=== PATIENT | male | born 1940 | race Caucasian/White ===

== ENCOUNTER 2023-06-08 10:35 | Outpatient (RCR) | payer MEDICARE, SELFPAY | END 2023-06-08 23:59 | disposition home or self-care (01) | LOC: RST 10:35 | PROVIDERS: ATTENDING PHYSICIAN Nurse Practitioner Adult Health; PRIMARYCARE PHYSICIAN Internal Medicine | DX: I69.328 Other speech and language deficits following cerebral infarction (principal) | CPT/HCPCS: 92507; 92523 ==

== ENCOUNTER 2023-07-22 09:20 | Outpatient (RCR) | payer MEDICARE, SELFPAY | END 2023-07-22 23:59 | disposition home or self-care (01) | LOC: RST 09:20 | PROVIDERS: ATTENDING PHYSICIAN Nurse Practitioner Adult Health; PRIMARYCARE PHYSICIAN Internal Medicine | DX: I69.328 Other speech and language deficits following cerebral infarction (principal); I69.322 Dysarthria following cerebral infarction; Z73.6 Limitation of activities due to disability | CPT/HCPCS: 92507 ==

== ENCOUNTER 2023-08-07 09:32 | Outpatient (RCR) | payer MEDICARE, SELFPAY | END 2023-08-07 09:53 | disposition home or self-care (01) | LOC: RST 09:32 | PROVIDERS: ATTENDING PHYSICIAN Nurse Practitioner Adult Health; PRIMARYCARE PHYSICIAN Internal Medicine | DX: I69.328 Other speech and language deficits following cerebral infarction (principal); I69.322 Dysarthria following cerebral infarction; Z73.6 Limitation of activities due to disability | CPT/HCPCS: 92507 ==

== ENCOUNTER 2023-08-13 16:23 | Emergency (ER) | payer MEDICARE, SELFPAY ==
[2023-08-13] VITALS (10 sets, daily range): BP systolic 139–247; BP diastolic 64–125
[2023-08-13 16:54] LABS: % Basophils 0.8 % (0-2); % Immature Granulocytes 0.5 % (0-0.5); % Lymphocytes 24.4 % (20.5-51.1); % Monocytes 6.8 % (1.7-9.3); % Neutrophils 63.5 % (42.2-75.2); Absolute Basophils 0.1 10^3/uL (0-0.2); Absolute Eosinophils 0.4 10^3/uL (0-0.7); Absolute Immature Granulocytes 0.1 10^3/uL (0-0.05); Absolute Lymphocytes 2.6 10^3/uL (1.2-3.4); Absolute Monocytes 0.7 10^3/uL (0.1-0.6); Absolute Neutrophils 6.9 10^3/uL (1.4-6.5); Hematocrit 43.6 % (39.0-52.0); Mean Corp Hgb Conc. 34.4 g/dL (33.0-37.0); Mean Corpuscular Hgb 29.7 pg (27.0-31.0); Mean Corpuscular Volume 86.3 fL (80.0-94.0); Nucleated Red Blood Cells % 0 % (-); Platelet Count 198 10^3/uL (130-400); Red Blood Cell Count 5.05 10^6/uL (4.70-6.10); Red Cell Dist. Width 14.4 % (11.5-14.5); White Blood Cell Count 10.8 10^3/uL (4.8-10.8)
[2023-08-13 17:07] LABS: ALT (SGPT) 17 U/L (0-50); AST (SGOT) 29 U/L (17-59); Albumin 3.9 g/dl (3.5-5.0); Alkaline Phosphatase 41 U/L (38-126); Blood Urea Nitrogen 29 mg/dl (9-20); Calcium 9.4 mg/dl (8.4-10.2); Carbon Dioxide 29 mmol/L (22-30); Chloride 99 mmol/L (98-107); Glucose 108 mg/dl (70-99); Potassium 4.3 mmol/L (3.5-5.1); Sodium 135 mmol/L (135-145); Total Bilirubin 0.8 mg/dl (0.2-1.3); Total Protein 6.6 g/dl (6.3-8.2); eGFR > 60.00
--- NOTE | 2023-08-13 18:40 | ED.GENMED ---
History of Present Illness
<Denisha Phoenix PA-C - Last Filed: 08/13/23 23:17>
General
Chief Complaint: Blood Pressure Problem
Source: patient
Exam Limitations: none
Time Seen by Provider: 08/13/23 18:12
Nursing documentation reviewed up to this point in time: agreed with
Travel History
Have you had any contact with someone who has COVID-19?: No
Do you have any symptoms of coronavirus? Fever > 100 degrees, chills, cough, shortness of breath, sore throat, loss of taste or smell, muscle aches, or headache?: No
History of Present Illness
History of Present Illness:
Patient is an 83-year-old male with history hypertension, hyperlipidemia, carotid artery stenosis status post left enterectomy, CVA presenting for evaluation of asymptomatic hypertension. Patient states that he took his blood pressure at home
around 4 PM and found it to be 200/120. He called his primary care provider who recommended he go to the emergency room for evaluation. He denies any chest pain, shortness of breath, headache, visual changes, weakness, back pain.
Patient has a history of hypertension and currently takes metoprolol 25 mg valsartan/HCTZ 320 mg. He was having heart palpitations recently and was switched from carvedilol to metoprolol by his PCP earlier this week. He took his first dose of
metoprolol this morning. There was a 3 day period earlier this week where he had stopped carvedilol and had not yet started metoprolol.
He checks his blood pressure somewhat infrequently but typically finds them to be around 160/85.
Past History
<Denisha Phoenix PA-C - Last Filed: 08/13/23 23:17>
Past History
ED Past Medical History: Cancer (melanoma and Squamous cell), HTN and Other (Vertigo, )
ED Past Surgical History: Appendectomy, Orthopedic (Lumbar laminectomy), Urological (TURP, ) and Other (Cataracts, Left carotid endarterectomy)
Social History
Tobacco: Smoker
Alcohol: None
Personal:
Living: alone
Phy Exam
<Denisha Phoenix PA-C - Last Filed: 08/13/23 23:17>
Physical Exam
Physical Exam:
General: In no apparent distress, non-toxic
Vitals: Hypertensive, otherwise VSS
HEENT: Atraumatic, normocephalic; pupils equal round reactive to light bilaterally, extraocular muscles intact, protecting airway
Neck: appears supple, no JVD
CV: Borderline bradycardic, regular rhythm, no evidence of cyanosis
Resp: No evidence of respiratory distress, lungs clear; no accessory muscle use
Abd: Soft, nontender, non-distended
Extremities: No deformities, no evidence of cyanosis or edema; DP pulses equal and palpable bilaterally
Neuro: alert and oriented to person place time, speech normal, no focal neurologic deficits, cranial nerves II through XII intact; sensation intact, strength 5 out of 5 in upper and lower extremities; very subtle flattening of left nasolabial fold
which is baseline per patient
Psych: Normal affect
Skin: Intact, no rashes
Course
<Denisha Phoenix PA-C - Last Filed: 08/13/23 23:17>
Orders/Labs/Results
Orders:
Orders
08/13/23 16:33
Electrocardiogram (*1) Urgent
Reason for Study: Hypertension, Benign
EKG- Treatment ONCE
08/13/23 16:43
Complete Blood Count/With Diff Urgent
Comprehensive Metabolic Panel Urgent
08/13/23 18:40
CT Head W/o Iv Contrast Urgent
Comment:
Reason For Exam: hypertension
HydrALAZINE [Apresoline] 10 mg IV NOW STA
08/13/23 21:58
HydrALAZINE [Apresoline] 10 mg IV NOW STA
Abnormal Lab Results
08/13/23
16:43
Abs Immat Gran (auto) 0.1 H 10^3/uL
(0-0.05)
Absolute Neuts (auto) 6.9 H 10^3/uL
(1.4-6.5)
Absolute Monos (auto) 0.7 H 10^3/uL
(0.1-0.6)
BUN 29 H mg/dl
(9-20)
Glucose 108 H mg/dl
(70-99)
08/13/23 16:43
08/13/23 16:43
Vital Signs
Initial and Last Documented VS:
Initial Vital Signs
Temp Pulse Resp BP Pulse Ox
98.2 F 59 18 247/125 98
08/13/23 16:29 08/13/23 16:29 08/13/23 16:29 08/13/23 16:29 08/13/23 16:29
Last Documented Vital Signs
Temp Pulse Resp BP Pulse Ox
98.2 F 56 17 139/64 95
08/13/23 16:29 08/13/23 22:00 08/13/23 22:00 08/13/23 22:00 08/13/23 20:35
<Swathi Pereira MD - Last Filed: 08/13/23 22:03>
Orders/Labs/Results
Orders:
Orders
08/13/23 16:33
Electrocardiogram (*1) Urgent
Reason for Study: Hypertension, Benign
EKG- Treatment ONCE
08/13/23 16:43
Complete Blood Count/With Diff Urgent
Comprehensive Metabolic Panel Urgent
08/13/23 18:40
CT Head W/o Iv Contrast Urgent
Comment:
Reason For Exam: hypertension
HydrALAZINE [Apresoline] 10 mg IV NOW STA
08/13/23 21:58
HydrALAZINE [Apresoline] 10 mg IV NOW STA
Abnormal Lab Results
08/13/23
16:43
Abs Immat Gran (auto) 0.1 H 10^3/uL
(0-0.05)
Absolute Neuts (auto) 6.9 H 10^3/uL
(1.4-6.5)
Absolute Monos (auto) 0.7 H 10^3/uL
(0.1-0.6)
BUN 29 H mg/dl
(9-20)
Glucose 108 H mg/dl
(70-99)
08/13/23 16:43
08/13/23 16:43
Vital Signs
Initial and Last Documented VS:
Initial Vital Signs
Temp Pulse Resp BP Pulse Ox
98.2 F 59 18 247/125 98
08/13/23 16:29 08/13/23 16:29 08/13/23 16:29 08/13/23 16:29 08/13/23 16:29
Last Documented Vital Signs
Temp Pulse Resp BP Pulse Ox
98.2 F 56 17 139/64 95
08/13/23 16:29 08/13/23 22:00 08/13/23 22:00 08/13/23 22:00 08/13/23 20:35
<Denisha Phoenix PA-C - Last Filed: 08/13/23 23:17>
MDM/Problems Addressed
Differential Diagnosis Includes:
Asymptomatic hypertension, hypertensive urgency, hypertensive emergency
MDM/Problems Addressed:
Patient is an 83-year-old male with history hypertension, hyperlipidemia, carotid artery stenosis status post left enterectomy, CVA presenting for evaluation of asymptomatic hypertension. Patient states that he took his blood pressure at home
around 4 PM and found it to be 200/120. He was told by his primary care provider to visit emergency room. 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 Patient is completely asymptomatic
and denies any chest pain, shortness of breath, headache, visual changes, back pain, dizziness, weakness, numbness. He currently takes metoprolol 25 mg, which he started this morning and valsartan/HCTZ. Physical exam as document above. He is very
well-appearing, no neurologic deficits. Given degree of hypertension�will check basic labs EKG, CT of head. Will give 10 mg IV hydralazine and reassess.
CBC without any clinically significant abnormalities. CMP with elevation in BUN to 29 which appears to be around patient's baseline. No other clinically significant abnormalities.
EKG with sinus bradycardia and no signs of ischemia. CT scan pending
Update: 30 minutes following administration of hydralazine�patient's blood pressure has decreased to 194/76. Plan for discharge following CT of head.
BP has remained stable. Stable for discharge with very close return precautions and immediate f/u with cardiology and primary care for management of hypertension. Patient comfortable with this plan. All questions answered.
Chronic conditions affecting care:
HTN, HLD, prior CVA
Acute Exacerbation and/or Progression of Chronic Illness:
Hypertensive urgency
<Denisha Phoenix PA-C - Last Filed: 08/13/23 23:17>
*Radiology
Radiology exam reviewed: preliminary read by ED provider
*Pulse Oximetry
Patient hypoxic: no
*EKG
EKG Intrepretation Date: 08/13/23
Interpretation: abnormal
Comparison EKG: no changes
Heart Rate: 55
Rate: bradycardiac
Rhythm: sinus
[place]: normal axis
Interval: normal interval
QRS Pattern: normal QRS
Ischemia: no ischemia
*Library Attendant Interpretation
Rate: bradycardiac
Interpretation: normal
Heart Rate: 50
Rhythm: sinus
*Critical Care Note
Total Time (30-74mins, 75-104mins- exclusive of procedures): Not Applicable
ED Attending Note
<Denisha Phoenix PA-C - Last Filed: 08/13/23 23:17>
-
Portions of this chart may have been created with voice recognition software.� Occasional wrong word or��sound alike� substitutions may have occurred due to the inherent limitations of voice recognition software.
<Swathi Pereira MD - Last Filed: 08/13/23 22:03>
ED Attending Note
Patient seen and examined by attending physician: Yes
I performed the substantive portion of visit, reviewed & personally made and approve the management plan that is documented in note by myself or GILDA.: Yes
ED Attending Note:
83-year-old male presents emergency department with elevated blood pressure. He states it was checked last week and was near normal. He has had recent medication changes. He states that he was on 80 mg of carvedilol and that his director of business continuity
creased to 20 mg about a week ago. Then, this week, his primary care doctor discontinued his carvedilol. Start the new agent, metoprolol, until a few days later. He was having palpitations earlier in the week which is now fully resolved. He
denies any symptoms at this time. He denies chest pain, dizziness, dyspnea, numbness, tingling, headache, weakness, or other complaints. On exam, patient is neurologically intact, very pleasant, smiling. There is a very very subtle flattening of
the left nasolabial fold which patient states is baseline for him. Finger nose normal, motor 5 out of 5, sensory intact. Plan is workup to exclude endorgan injury, unremarkable thus far, CT pending. Will administer medication to gently partially
reduce blood pressure with plans for very close follow-up.
Head ct nad. bp initilaly responded to meds, slowly increasing most recently 210/97. Will remedicate to slowly reduce before close d/c. Correction, repeat bp markedly improved. med canceled, pt d/c home.
Discharge Plan
Departure
Patient Disposition: Home (Routine Discharge)
Date of Disposition: 08/13/23
Time of Disposition: 22:02
Patient with high blood pressure during this ER visit?: Yes
Condition: Good
Covid-19: Not Applicable
Discharge Problem:
Hypertensive urgency
Instructions: High Blood Pressure (DC), High blood pressure emergencies, BLOOD PRESSURE
Prescriptions:
No Action
levothyroxine [Synthroid] 150 mcg Tablet
150 mcg PO DAILY AT 0700
aspirin 81 mg Tablet,Chewable
81 mg PO DAILY
ezetimibe 10 mg Tablet
10 mg PO DAILY
carvedilol phosphate 10 mg Capsule, Er Multiphase 24 Hr
10 mg PO DAILY
Rx Instructions:
must administer with a meal/food
valsartan-hydrochlorothiazide 320-12.5 mg Tablet
1 tab PO DAILY
finasteride 5 mg Tablet
5 mg PO HS
nicotine 14 mg/24 hr Patch 24 Hour
14 mg transdermal DAILY Qty: 30 0RF
amlodipine 5 mg Tablet
5 mg PO DAILY Qty: 30 0RF
cholecalciferol (vitamin D3) 50 mcg (2,000 unit) Tablet
50 mcg PO DAILY Qty: 30 0RF
clopidogrel 75 mg Tablet
75 mg PO DAILY Qty: 30 0RF
Referrals:
Santy Eastman DO [Family Provider] - Tomorrow
Mykel Russo MD [Active] - Tomorrow
Activity Restrictions/Additional Instructions:
-Return to the emergency department with any chest pain, shortness of breath, severe back pain, dizziness, weakness, visual changes, severe headache, worsening in current symptoms, or any other concerns
-You should continue to take your medication as prescribed.
-As discussed - you should follow-up with cardiology and your primary care provider tomorrow for further evaluation/management of your hypertension.
Interventions
Interventions:
*Risk Screen - Suicide Last Done: 08/13/23 16:29
*General Assessment Last Done: 08/13/23 16:29
*Neglect/Abuse Screening Last Done: 08/13/23 16:29
ED- Fall Risk Assessment Last Done: 08/13/23 17:44
*ED COVID-19 Vaccine History Last Done: 08/13/23 16:29
*Nursing Disposition Last Done: 08/13/23 22:14
ED- Cardiac Assessment Last Done: 08/13/23 17:44
ED- Neurological Assessment Last Done: 08/13/23 17:44
ED- Pulmonary Assessment Last Done: 08/13/23 17:44
Discharge Date and Time
Discharge Date/Time: 08/13/23 22:15
[2023-08-13] MEDS: APRESOLINE 10 MG IV (19:02)
== END 2023-08-13 22:15 | disposition home or self-care (01) ==
LOC: EMR 16:23
PROVIDERS: EMERGENCY PHYSICIAN Emergency Medicine; FAMILY PHYSICIAN Internal Medicine
DX: I16.0 Hypertensive urgency (principal); E78.5 Hyperlipidemia, unspecified
CPT/HCPCS: 99285; 96374; 70450; 80053; 85025; 93005

== ENCOUNTER → 2023-11-13 09:03 | Outpatient (REF) | payer MEDICARE, SELFPAY | LOC: DHVS 09:03 | PROVIDERS: ATTENDING PHYSICIAN Surgery Vascular Surgery; FAMILY PHYSICIAN Internal Medicine | DX: I65.23 Occlusion and stenosis of bilateral carotid arteries (principal) | CPT/HCPCS: 93880 ==

== ENCOUNTER → 2024-01-12 06:50 | Outpatient (REF) | payer MEDICARE, SELFPAY ==
[2024-01-12 08:32] LABS: ALT (SGPT) 21 U/L (0-50); AST (SGOT) 29 U/L (17-59); Albumin 3.9 g/dl (3.5-5.0); Alkaline Phosphatase 46 U/L (38-126); Blood Urea Nitrogen 27 mg/dl (9-20); Calcium 9.3 mg/dl (8.4-10.2); Carbon Dioxide 32 mmol/L (22-30); Chloride 101 mmol/L (98-107); Glucose 108 mg/dl (70-99); HDL Cholesterol 55 mg/dl; LDL Cholesterol, Calculated 105 mg/dl; Potassium 4.6 mmol/L (3.5-5.1); Sodium 136 mmol/L (135-145); Total Bilirubin 0.4 mg/dl (0.2-1.3); Total Cholesterol 195 mg/dl (50-199); Total Protein 6.1 g/dl (6.3-8.2); Triglyceride 177 mg/dl (10-149); Very Low Density Lipoprotein 35 mg/dl (0-30); eGFR 59.63
== END ==
LOC: REG 06:50
PROVIDERS: ATTENDING PHYSICIAN Internal Medicine
DX: I10 Essential (primary) hypertension (principal); E78.2 Mixed hyperlipidemia
CPT/HCPCS: 36415; 80053; 80061

== ENCOUNTER → 2024-03-10 07:49 | Outpatient (REF) | payer MEDICARE, SELFPAY ==
[2024-03-10 10:19] LABS: % Eosinophils 4.2 % (0-6); % Immature Granulocytes 0.4 % (0-0.5); % Lymphocytes 20.1 % (20.5-51.1); % Monocytes 5.8 % (1.7-9.3); % Neutrophils 68.5 % (42.2-75.2); Absolute Basophils 0.1 10^3/uL (0-0.2); Absolute Eosinophils 0.4 10^3/uL (0-0.7); Absolute Lymphocytes 1.9 10^3/uL (1.2-3.4); Absolute Monocytes 0.6 10^3/uL (0.1-0.6); Absolute Neutrophils 6.5 10^3/uL (1.4-6.5); Hematocrit 42.8 % (39.0-52.0); Hemoglobin 14.4 g/dL (13.0-18.0); Mean Corp Hgb Conc. 33.6 g/dL (33.0-37.0); Mean Corpuscular Hgb 29.4 pg (27.0-31.0); Mean Corpuscular Volume 87.5 fL (80.0-94.0); Mean Platelet Volume 10.1 fL (7.4-10.4); Nucleated Red Blood Cells % 0 % (-); Platelet Count 203 10^3/uL (130-400); Red Blood Cell Count 4.89 10^6/uL (4.70-6.10); Red Cell Dist. Width 14.6 % (11.5-14.5); White Blood Cell Count 9.6 10^3/uL (4.8-10.8)
[2024-03-10 10:56] LABS: ALT (SGPT) 20 U/L (0-50); AST (SGOT) 29 U/L (17-59); Albumin 4.2 g/dl (3.5-5.0); Alkaline Phosphatase 48 U/L (38-126); Blood Urea Nitrogen 26 mg/dl (9-20); Calcium 9.4 mg/dl (8.4-10.2); Carbon Dioxide 29 mmol/L (22-30); Chloride 98 mmol/L (98-107); Glucose 98 mg/dl (70-99); HDL Cholesterol 69 mg/dl; LDL Cholesterol, Calculated 119 mg/dl; Potassium 4.5 mmol/L (3.5-5.1); Sodium 137 mmol/L (135-145); Total Bilirubin 0.6 mg/dl (0.2-1.3); Total Cholesterol 217 mg/dl (50-199); Total Protein 6.4 g/dl (6.3-8.2); Triglyceride 147 mg/dl (10-149); Very Low Density Lipoprotein 29 mg/dl (0-30); eGFR > 60.00
== END ==
LOC: REG 07:49
PROVIDERS: ATTENDING PHYSICIAN Internal Medicine
DX: I10 Essential (primary) hypertension (principal); R42 Dizziness and giddiness; E03.9 Hypothyroidism, unspecified; M35.3 Polymyalgia rheumatica; E78.00 Pure hypercholesterolemia, unspecified; D72.829 Elevated white blood cell count, unspecified
CPT/HCPCS: 36415; 80053; 80061; 84443; 85025

== ENCOUNTER → 2024-05-05 08:25 | Outpatient (REF) | payer MEDICARE, SELFPAY ==
[2024-05-05 11:59] LABS: Free T4 1.28 ng/dl (0.78-2.19)
== END ==
LOC: REG 08:25
PROVIDERS: ATTENDING PHYSICIAN Internal Medicine
DX: E03.9 Hypothyroidism, unspecified (principal)
CPT/HCPCS: 36415; 84439; 84443

== ENCOUNTER → 2024-07-06 14:42 | Outpatient (REF) | payer MEDICARE, SELFPAY | LOC: RAD 14:42 | PROVIDERS: ATTENDING PHYSICIAN Internal Medicine | DX: I73.9 Peripheral vascular disease, unspecified (principal); F17.210 Nicotine dependence, cigarettes, uncomplicated | CPT/HCPCS: 93922; 93925 ==

== ENCOUNTER → 2024-07-18 08:08 | Outpatient (REF) | payer MEDICARE, SELFPAY ==
[2024-07-18 09:52] LABS: ALT (SGPT) 17 U/L (0-50); AST (SGOT) 25 U/L (17-59); Albumin 4.2 g/dl (3.5-5.0); Alkaline Phosphatase 47 U/L (38-126); Blood Urea Nitrogen 26 mg/dl (9-20); Calcium 9.2 mg/dl (8.4-10.2); Carbon Dioxide 32 mmol/L (22-30); Chloride 101 mmol/L (98-107); Glucose 100 mg/dl (70-99); HDL Cholesterol 68 mg/dl; LDL Cholesterol, Calculated 123 mg/dl; Potassium 5.2 mmol/L (3.5-5.1); Sodium 139 mmol/L (135-145); Total Bilirubin 0.4 mg/dl (0.2-1.3); Total Cholesterol 213 mg/dl (50-199); Total Protein 6.5 g/dl (6.3-8.2); Triglyceride 113 mg/dl (10-149); Very Low Density Lipoprotein 22 mg/dl (0-30); eGFR 59.26
[2024-07-18 10:25] LABS: PSA, Total - Screen 2.18 ng/ml (0.0-4.0); TSH Reflex To Free T4 4.39 uIU/ml (0.47-4.68)
== END ==
LOC: REG 08:08
PROVIDERS: ATTENDING PHYSICIAN Internal Medicine
DX: I10 Essential (primary) hypertension (principal); E78.2 Mixed hyperlipidemia; E03.9 Hypothyroidism, unspecified; Z87.898 Personal history of other specified conditions
CPT/HCPCS: 36415; 80053; 80061; 84443; G0103

== ENCOUNTER → 2024-12-19 13:51 | Outpatient (REF) | payer MEDICARE, SELFPAY | LOC: RAD 13:51 | PROVIDERS: ATTENDING PHYSICIAN Surgery Vascular Surgery; FAMILY PHYSICIAN Internal Medicine | DX: I65.23 Occlusion and stenosis of bilateral carotid arteries (principal) | CPT/HCPCS: 93880 ==

== ENCOUNTER → 2025-02-09 13:54 | Outpatient (REF) | payer MEDICARE, SELFPAY | LOC: RAD 13:54 | PROVIDERS: ATTENDING PHYSICIAN Internal Medicine | DX: M54.50 Low back pain, unspecified (principal) | CPT/HCPCS: 72110 ==

== ENCOUNTER 2025-02-14 07:12 | Outpatient (RCR) | payer MEDICARE, SELFPAY | END 2025-02-14 23:59 | disposition home or self-care (01) | LOC: RPT 07:12 | PROVIDERS: ATTENDING PHYSICIAN Internal Medicine | DX: I73.9 Peripheral vascular disease, unspecified (principal); M35.3 Polymyalgia rheumatica; R42 Dizziness and giddiness; R26.89 Other abnormalities of gait and mobility; Z73.6 Limitation of activities due to disability | CPT/HCPCS: 97112; 97163 ==

== ENCOUNTER → 2025-02-28 07:10 | Outpatient (REF) | payer MEDICARE, SELFPAY ==
[2025-02-28 09:36] LABS: ALT (SGPT) 28 U/L (0-50); AST (SGOT) 31 U/L (17-59); Albumin 4.3 g/dl (3.5-5.0); Alkaline Phosphatase 66 U/L (38-126); Blood Urea Nitrogen 25 mg/dl (9-20); Calcium 9.0 mg/dl (8.4-10.2); Carbon Dioxide 29 mmol/L (22-30); Chloride 99 mmol/L (98-107); Glucose 109 mg/dl (70-99); HDL Cholesterol 70 mg/dl; LDL Cholesterol, Calculated 110 mg/dl; Potassium 4.4 mmol/L (3.5-5.1); Sodium 133 mmol/L (135-145); Total Protein 6.5 g/dl (6.3-8.2); Very Low Density Lipoprotein 25 mg/dl (0-30); eGFR 59.26
[2025-02-28 09:55] LABS: PSA, Total - Screen 2.29 ng/ml (0.0-4.0)
== END ==
LOC: REG 07:10
PROVIDERS: ATTENDING PHYSICIAN Internal Medicine Cardiovascular Disease; FAMILY PHYSICIAN Internal Medicine
DX: I10 Essential (primary) hypertension (principal); E78.2 Mixed hyperlipidemia; E03.9 Hypothyroidism, unspecified; Z87.898 Personal history of other specified conditions; Z12.5 Encounter for screening for malignant neoplasm of prostate
CPT/HCPCS: 36415; 80053; 80061; 84439; 84443; G0103

== ENCOUNTER 2025-03-20 17:06 | Outpatient (RCR) | payer MEDICARE, SELFPAY | END 2025-03-20 23:59 | disposition home or self-care (01) | LOC: RPT 17:06 | PROVIDERS: ATTENDING PHYSICIAN Internal Medicine | DX: I73.9 Peripheral vascular disease, unspecified (principal); M35.3 Polymyalgia rheumatica; R42 Dizziness and giddiness; R26.89 Other abnormalities of gait and mobility; Z73.6 Limitation of activities due to disability | CPT/HCPCS: 97110; 97112; 97530 ==

== ENCOUNTER → 2025-04-04 07:10 | Outpatient (REF) | payer MEDICARE, SELFPAY | LOC: REG 07:10 | PROVIDERS: ATTENDING PHYSICIAN Internal Medicine | DX: E03.9 Hypothyroidism, unspecified (principal) | CPT/HCPCS: 36415; 84443 ==

== ENCOUNTER → 2025-04-20 07:43 | Outpatient (REF) | payer MEDICARE, SELFPAY | LOC: RAD 07:43 | PROVIDERS: ATTENDING PHYSICIAN Internal Medicine | DX: S09.90XA Unspecified injury of head, initial encounter (principal); I67.9 Cerebrovascular disease, unspecified; J44.9 Chronic obstructive pulmonary disease, unspecified | CPT/HCPCS: 70450 ==

== ENCOUNTER 2025-04-21 09:25 | Outpatient (RCR) | payer MEDICARE, SELFPAY | END 2025-04-21 23:59 | disposition home or self-care (01) | LOC: RPT 09:25 | PROVIDERS: ATTENDING PHYSICIAN Internal Medicine | DX: I73.9 Peripheral vascular disease, unspecified (principal); M35.3 Polymyalgia rheumatica; R42 Dizziness and giddiness; R26.89 Other abnormalities of gait and mobility; Z73.6 Limitation of activities due to disability; R26.2 Difficulty in walking, not elsewhere classified | CPT/HCPCS: 97110; 97112; 97530 ==

== ENCOUNTER 2025-05-10 08:25 | Outpatient (RCR) | payer MEDICARE, SELFPAY | END 2025-05-10 23:59 | disposition home or self-care (01) | LOC: RPT 08:25 | PROVIDERS: ATTENDING PHYSICIAN Internal Medicine | DX: I73.9 Peripheral vascular disease, unspecified (principal); M35.3 Polymyalgia rheumatica; R42 Dizziness and giddiness; R26.89 Other abnormalities of gait and mobility; Z73.6 Limitation of activities due to disability; R26.2 Difficulty in walking, not elsewhere classified | CPT/HCPCS: 97110; 97112; 97530 ==